=== PATIENT | male | born 1980 | race Caucasian/White ===

== ENCOUNTER → 2024-12-15 12:57 | Outpatient (REF) | payer OTHER, SELFPAY | LOC: RAD 12:57 | PROVIDERS: ATTENDING PHYSICIAN Family Medicine | DX: R10.32 Left lower quadrant pain (principal); K57.92 Diverticulitis of intestine, part unspecified, without perforation or abscess without bleeding | CPT/HCPCS: 74177; Q9967 ==

== ENCOUNTER → 2025-05-18 12:52 | Outpatient (REF) | payer OTHER, SELFPAY | LOC: HWRAD 12:52 | PROVIDERS: ATTENDING PHYSICIAN Surgery; FAMILY PHYSICIAN Family Medicine | DX: R33.9 Retention of urine, unspecified (principal) | CPT/HCPCS: 76770 ==

== ENCOUNTER 2025-05-25 10:12 | Emergency (ER) | payer OTHER, SELFPAY ==
[2025-05-25 10:15] VITALS: BP 192/118
--- NOTE | 2025-05-25 10:36 | ED.GENMED ---
History of Present Illness
General
Chief Complaint: Rectal Bleeding
Source: patient, ambulance crew and senior care records
Exam Limitations: none
Time Seen by Provider: 05/25/25 10:35
Nursing documentation reviewed up to this point in time: agreed with
History of Present Illness
History of Present Illness:
44-year-old male with history of diverticulitis, bladder stones with difficulty urinating past year, followed by Urology, chronic abdominal issues, here for blood mixed in with his stools, 'vomiting blood,' mid to right upper abdominal pain off
an on past month, worse past 2 weeks and even worse today. The pain is 10/10, primarily located in the upper left quadrant and is described as intense, with sensations likened to 'boiling.' He also mentions an inability to sit still due to
discomfort.
The patient denies diarrhea and has regular bowel movements, though they are bloody. He notes the onset of these symptoms about a month ago but describes an escalation in pain severity in the last 2weeks and even worse since yesterday. He also
experienced a fever accompanied by sweating but has not measured his temperature due to a non-functional thermometer. Has Zofran at home but has not taken any
He saw PCP in March for similar symptoms and Abd CT scan ordered but didn't do it because 'I can't stay still long enough.'
Had removal of bladder stones in December but continues to have difficulty urinating.
Last saw his GI doctor 6 months ago.
Past History
Past History
ED Past Medical History: Other (Colitis, diverticulitis, bladder calculi with chronic difficulty urinating)
ED Past Surgical History: Urological (removal bladder stones)
Social History
Tobacco: Non-smoker
Alcohol: Occasional
Personal:
Living: with family
Employment: Employed
Review of Systems
Review of Systems
Allergies reviewed?: Yes
All Other Systems: ROS reviewed and negative except as documented in HPI and ROS
Constitutional: Reports chills; Denies fever
Respiratory: Denies trouble breathing
Cardiac: Denies chest pain
ABD/GI: Reports abdominal pain, nausea, vomiting, bloody stools and anorexia
: Reports difficulty voiding
Musculoskeletal: Denies back pain
Skin: Reports no symptoms
Neurological: Reports no symptoms
Phy Exam
Physical Exam
Physical Exam:
GENERAL: Moderat distress, pacing, moaning with abd pain, nausea and dry heaves. A&Ox3.
CONSTITUTIONAL: Afebrile.
EYES: clear, conjunctivae normal
ENMT: moist mucus membranes, Pharynx nl
RESPIRATORY: Regular respirations, nonlabored, lungs clear.
CARDIOVASCULAR: Regular rate and rhythm, no murmurs, no rubs.
GI: Soft, tender upper mid to Left abdomen. Normal BS
Rectal: no stool in rectal vault small amt pink mucus hematests positive
MUSCULOSKELETAL: Moves with ease. Well perfused.
SKIN: Warm, dry, pink
PSYCH: Anxious mood and affect. Well kept, interactive and appropriate
NEUROLOGIC: Awake, alert and oriented. No focal neurological deficits
Course
Orders/Labs/Results
Orders:
Orders
05/25/25 10:47
HYDROmorphone [Dilaudid] 1 mg IV NOW STA
Ondansetron Injectable [Zofran] 4 mg IV NOW STA
05/25/25 10:48
0.9% Sodium Chloride 1000 ml [Nss] 1,000 ml IV BOLUS
05/25/25 10:49
CT Abd/Pel (IV only)-DH only Urgent
Comment:
Reason For Exam: mid to L upper abdom pain, vomiting, bloody stool
05/25/25 11:00
Complete Blood Count/With Diff Urgent
Comprehensive Metabolic Panel Urgent
Lipase Urgent
05/25/25 11:06
Urinalysis Reflex To Culture Urgent
Date Specimen was Collected: 05/25/25
Time Specimen was Collected: 11:02
Urine Microscopic Reflex Cult Urgent
Urine Culture Urgent
ERNESTO Source: U
Specimen Description:
Date Specimen was Collected: 05/25/25
Time Specimen was Collected: 11:02
05/25/25 14:10
Dicyclomine [Bentyl] 20 mg PO NOW STA
05/25/25 14:21
Pantoprazole [Protonix IV] 80 mg IV NOW STA
Abnormal Lab Results
05/25/25 05/25/25
11:00 11:06
WBC 11.8 H 10^3/uL
(4.8-10.8)
MPV 10.8 H fL
(7.4-10.4)
Abs Immat Gran (auto) 0.1 H 10^3/uL
(0-0.05)
Absolute Neuts (auto) 10.1 H 10^3/uL
(1.4-6.5)
Neutrophils % 85.8 H %
(42.2-75.2)
Lymphocytes % 10.7 L %
(20.5-51.1)
Glucose 154 H mg/dl
(70-99)
Calcium 10.7 H mg/dl
(8.4-10.2)
Total Protein 8.8 H g/dl
(6.3-8.2)
Albumin 5.1 H g/dl
(3.5-5.0)
Urine Ketones 3+ A
(Negative)
Ur Occult Blood Reflex 1+ A
(Negative)
Leukocyte Esterase Rfl 1+ A
(Negative)
Urine RBC 3-6 A /HPF
(0-2)
Urine Bacteria (Reflex) Moderate A
(Negative)
Urine Albumin (Reflex) 2+ A
(Neg - Trace)
05/25/25 11:00
05/25/25 11:00
Vital Signs
Initial and Last Documented VS:
Initial Vital Signs
Temp Pulse Resp BP Pulse Ox
99.0 F 90 24 192/118 99
05/25/25 10:15 05/25/25 10:15 05/25/25 10:15 05/25/25 10:15 05/25/25 10:15
Last Documented Vital Signs
Temp Pulse Resp BP Pulse Ox
99.0 F 90 24 149/88 98
05/25/25 10:15 05/25/25 10:15 05/25/25 10:15 05/25/25 14:20 05/25/25 14:30
MDM/Problems Addressed
Differential Diagnosis Includes:
1. Bladder cancer
2. Gastrointestinal bleed
3. Gastroenteritis
4. Urinary tract infection
5. Nephrolithiasis (kidney stones)
6. Inflammatory bowel disease
7. Prostatitis
8. Diverticulitis
9. Colorectal cancer
10. Upper gastrointestinal bleed
MDM/Problems Addressed:
44-year-old male with history of diverticulitis, bladder stones with difficulty urinating past year, followed by Urology, chronic abdominal issues, here for blood mixed in with his stools, 'vomiting blood,' mid to right upper abdominal pain off an
on past month, worse past 2 weeks and even worse today. The pain is 10/10, primarily located in the upper left quadrant and is described as intense, with sensations likened to 'boiling.' He also mentions an inability to sit still due to discomfort.
No known exposures, no recent travel.
The patient denies diarrhea and has regular bowel movements, though they are bloody. He notes the onset of these symptoms about a month ago but describes an escalation in pain severity in the last 2weeks and even worse since yesterday. He also
experienced a fever accompanied by sweating but has not measured his temperature due to a non-functional thermometer. Has Zofran at home but has not taken any
He saw PCP in March for similar symptoms and Abd CT scan ordered but didn't do it because 'I can't stay still long enough.'
Had removal of bladder stones in December but continues to have difficulty urinating.
Last saw his GI doctor 6 months ago. Had unremarkable colonoscopy
CBC with no clinically significant abnormality
CMP normal
Lipase normal
UA negative
2:[address] abd/pelvis w IV contrast radiology report read: 1. No acute abnormalities within the abdomen or pelvis.
2. Small amount of fluid distends the proximal and mid colon without wall thickening, which can be seen with acute diarrheal illness/gastroenteritis. The distal colon is decompressed without appreciable wall thickening or inflammatory change.
Copy of report reviewed and given to pt
No diarrhea or vomiting since arrival
No systemic infectious symptoms, no antibiotics indicated at this time
Pt calm, comfortable, states pain is coming back. My heartburn is coming back, I threw up my heartburn medicine this morning. Bentyl ordered, Protonix IV ordered
Rx for Bentyl and Zofran sent to his pharmacy
Additional investigations and follow-ups with specialists such as gastroenterology are warranted to narrow down the diagnosis and address the patients symptoms comprehensively.
He last saw his GI doctor 6 months ago at [facility]. He states he wants to switch to a GI doctor here. Referral given.
Pt ambulated out with normal gait with discharge Pt given out pt lab slip and container for stool sample
*Pulse Oximetry
SaO2: 99
Oxygen Mode of Delivery: Room air
Patient hypoxic: not evaluated
*Critical Care Note
Total Time (30-74mins, 75-104mins- exclusive of procedures): Not Applicable
ED Attending Note
-
Portions of this chart may have been created with voice recognition software.� Occasional wrong word or��sound alike� substitutions may have occurred due to the inherent limitations of voice recognition software.
Discharge Plan
Departure
Patient Disposition: Home (Routine Discharge)
Date of Disposition: 05/25/25
Time of Disposition: 14:14
Patient with high blood pressure during this ER visit?: No
Condition: Fair
Discharge Problem:
Gastroenteritis
Instructions: Gastrointestinal Bleeding (DC), Viral Gastroenteritis, Child ED, Abdominal Pain
Prescriptions:
New
ondansetron 4 mg tablet,disintegrating
4 mg PO HS 5 Days Qty: 15 0RF
dicyclomine 20 mg tablet
20 mg PO QID PRN (Reason: abdominal pain/cramps) Qty: 20 0RF
No Action
omeprazole 40 mg capsule,delayed release(DR/EC)
40 mg PO DAILY
acetaminophen [Tylenol Ex Str Rapid Release] 500 mg Tablet
1,000 mg PO Q6HPRN PRN (Reason: fever)
tamsulosin [Flomax] 0.4 mg Capsule
0.4 mg PO HS
calcium carbonate [Tums] 200 mg calcium (500 mg) Tablet,Chewable
200 mg PO BIDPRN PRN (Reason: gerd)
Referrals:
William Quach MD [Family Provider, Family Practice]
Kervin Galindo DO [Active, Gastroenterology] - Next open appointment
Activity Restrictions/Additional Instructions:
As we discussed, you most likely have a viral gastroenteritis.
I sent a prescription to your pharmacy for Bentyl to use for abdominal cramping and also for Zofran to use as needed for nausea and vomiting
Collect a diarrheal stool sample and bring it to the outpatient lab for testing
Return here immediately for fever above 100.5, repeated vomiting despite taking Zofran, worsening abdominal pain, increasing bloody stools/diarrhea despite taking Bentyl or feeling sicker in any way
Someone from the GI doctor's office will be calling you for an appointment.
Interventions
Interventions:
*Risk Screen - Suicide Last Done: 05/25/25 11:05
*General Assessment Last Done: 05/25/25 11:05
*Neglect/Abuse Screening Last Done: 05/25/25 11:05
*ED- Fall Risk Assessment Last Done: 05/25/25 11:05
*ED COVID-19 Vaccine History Last Done: 05/25/25 11:05
Discharge Date and Time
Print Language: LITHUANIAN
[2025-05-25] MEDS: DILAUDID 1 MG IV (11:02)
[2025-05-25] MEDS: NSS 1000 IV (11:02)
[2025-05-25] MEDS: ZOFRAN 4 MG IV (11:02)
[2025-05-25 11:04] VITALS: BMI 42.5
[2025-05-25 11:21] LABS: Hematocrit 42.9 % (39.0-52.0); Hemoglobin 15.3 g/dL (13.0-18.0); Mean Corp Hgb Conc. 35.7 g/dL (33.0-37.0); Mean Corpuscular Volume 85.8 fL (80.0-94.0); Nucleated Red Blood Cells % 0 % (-); Platelet Count 274 10^3/uL (130-400); Red Cell Dist. Width 12.4 % (11.5-14.5)
[2025-05-25 11:24] LABS: Urine Character Cloudy (Clear)
[2025-05-25 11:37] LABS: AST (SGOT) 27 U/L (17-59); Albumin 5.1 g/dl (3.5-5.0); Alkaline Phosphatase 77 U/L (38-126); Blood Urea Nitrogen 13 mg/dl (9-20); Calcium 10.7 mg/dl (8.4-10.2); Carbon Dioxide 22 mmol/L (22-30); Chloride 107 mmol/L (98-107); Estimated Creatinine Clearance > 125 ml/min; Glucose 154 mg/dl (70-99); Lipase 54 U/L (23-300); Potassium 3.8 mmol/L (3.5-5.1); Sodium 141 mmol/L (135-145); Total Protein 8.8 g/dl (6.3-8.2); eGFR > 60.00
[2025-05-25 11:48] LABS: ALT (SGPT) 48 U/L (0-50)
[2025-05-25 13:11] VITALS: BP 151/93
[2025-05-25 14:20] VITALS: BP 149/88
[2025-05-25] MEDS: BENTYL 20 MG PO (14:30)
[2025-05-25] MEDS: PROTONIX IV 80 MG IV (14:30)
== END 2025-05-25 15:15 | disposition home or self-care (01) ==
LOC: EMR 10:12
PROVIDERS: Registered Nurse; EMERGENCY PHYSICIAN Emergency Medicine; FAMILY PHYSICIAN Family Medicine
DX: K52.9 Noninfective gastroenteritis and colitis, unspecified (principal); R12 Heartburn
CPT/HCPCS: 99285; 96374; 96375 ×2; 96361; 74177; 80053; 81003; 81015; 83690; 85025; 87086; Q9967